=== PATIENT | male | born 1995 | race African-American/Black ===

== ENCOUNTER 2016-09-05 03:21 | Emergency (ER) | payer OTHER | END 2016-09-05 03:25 | disposition home or self-care (01) | LOC: CED 03:21 | DX: J30.2 Other seasonal allergic rhinitis (principal); F17.200 Nicotine dependence, unspecified, uncomplicated | CPT/HCPCS: 87651; 99283 ==

== ENCOUNTER 2016-09-05 20:48 | Emergency (ER) | payer OTHER ==
--- NOTE | ~2016-09-05 | CR63 ---
[facility] A Service of [facility] & [facility] RADIOLOGY TEXT RESULTS PATIENT: GORDO CARCAMO LOCATION: [facility] : [birth year] UNIT #: [id number] AGE: [address]: Jerome Zarco MD SEX: M ORDER DR: [id number] [facility] [address] [place], [place] [address] [id number] E MR#: [id number] #: [id number] NAME: GORDO CARCAMO : 1995 SEX: M STUDY DATE/TIME: 09/05/2016 21:09 UNIT: [facility] ROOM: STUDY DESCRIPTION: CR Chest 2 View Attending Physician: Jerome Zarco M.D. Ordering Physician: Jerome Zarco M.D. Primary Care Physician: Primary Care Physician No MEDICAL IMAGING REPORT This report is preliminary unless electronic signature is present EXAM PA and lateral chest HISTORY Cough and right side chest pain and congestion today. FINDINGS 2 views of the chest demonstrate moderate right mid thoracic curve. Borderline to mild cardiac enlargement. Pulmonary vascularity is normal. No infiltrates or effusions. IMPRESSION 1. Borderline to mild cardiac enlargement. 2. No active disease in the lungs. The lungs are clear. Dictated by... Javier Rivera M.D. THIS IS AN ELECTRONICALLY VERIFIED REPORT Javier Rivera M.D. at 09/06/2016 8:03 PM DFL/psc TD: 09/05/2016 23:48 JOB #: [id number] MEDICAL IMAGING REPORT Page 1 of 1 COPY
--- NOTE | ~2016-09-05 | EKG ---
PATIENT: GORDO CARCAMO UNIT #: [id number] Ventricular Rate: 40 BPM Atrial Rate: 40 BPM P-R Interval: 134 ms QRS Duration: 114 ms Q-T Interval: 438 ms QTC Calculation(Bezet): 356 ms P [place]: 37 degrees Calculated R [place]: -12 degrees Calculated T [place]: 39 degrees Diagnosis Line: Marked sinus bradycardia with Premature atrial Diagnosis Line: complexes Diagnosis Line: Incomplete right bundle branch block Diagnosis Line: Nonspecific T wave abnormality Diagnosis Line: Abnormal ECG Diagnosis Line: No previous ECGs available Diagnosis Line: Confirmed by LUIS DANIEL CORREIA MD ([id number]) on 09/06/2016 Diagnosis Line: 10:10:52 PM INTERPRETING MD: MASOOD DESOUZA
--- NOTE | ~2016-09-05 | EKG ---
PATIENT: GORDO CARCAMO UNIT #: [id number] Ventricular Rate: 44 BPM Atrial Rate: 44 BPM P-R Interval: 154 ms QRS Duration: 96 ms Q-T Interval: 426 ms QTC Calculation(Bezet): 364 ms P [place]: 40 degrees Calculated R [place]: -27 degrees Calculated T [place]: 25 degrees Diagnosis Line: Marked sinus bradycardia Diagnosis Line: Abnormal ECG Diagnosis Line: No previous ECGs available Diagnosis Line: Confirmed by LUIS DANIEL CORREIA MD ([id number]) on 09/06/2016 Diagnosis Line: 10:11:18 PM INTERPRETING MD: MASOOD DESOUZA
== END 2016-09-05 22:55 | disposition home or self-care (01) ==
LOC: CED 20:48
DX: J06.9 Acute upper respiratory infection, unspecified (principal); H92.01 Otalgia, right ear
CPT/HCPCS: 71020; 82947; 87651; 93005; 99283